=== PATIENT | female | born 1975 | race Caucasian/White ===

== ENCOUNTER 2016-07-20 12:43 | Emergency (ER) | payer OTHER ==
[~2016-07-20] VITALS: Ht 170.2 cm; Wt 61.2 kg
[~2016-07-20 12:43] MED LIST: CLOZ100T PO; COGENTIN PO; DIVA125T2 PO
--- NOTE | 2016-07-20 12:59 | NUR ---
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
--- NOTE | 2016-07-20 13:01 | NUR ---
Patient discharged to home in stable conditon. Written and verbal after care instructions given to patient. Patient verbalizes understanding of instructions. Patient left ER with brisk steady gait.
== END 2016-07-20 13:02 | disposition home or self-care (01) ==
LOC: ER 12:43
DX: M54.5 Low back pain (principal); J45.909 Unspecified asthma, uncomplicated; F20.9 Schizophrenia, unspecified; F10.20 Alcohol dependence, uncomplicated; F17.200 Nicotine dependence, unspecified, uncomplicated
CPT/HCPCS: A4663

== ENCOUNTER 2016-07-24 10:22 | Emergency (ER) | payer OTHER ==
[~2016-07-24] VITALS: Ht 170.2 cm; Wt 61.2 kg
--- NOTE | 2016-07-24 11:27 | NUR ---
Urine specimen obtained and sent to lab.
[2016-07-24 11:38] LABS: *BILIRUBIN,URIN NEGATIVE (NEGATIVE); *BLOOD, URINE NEGATIVE (NEGATIVE); *CLARITY,URINE CLOUDY (CLEAR); *COLOR,URINE YELLOW (YELLOW); *KETONES,URINE NEGATIVE (NEGATIVE); *PROTEIN,URINE NEGATIVE (NEGATIVE); *UROBILINOGEN,URINE 0.2 E.U./dl (NORMAL); LEUKOCYTE ESTERASE ,URINE 2+ (NEGATIVE); NITRITE, URINE NEGATIVE (NEGATIVE); UGLUCOSE NEGATIVE (NEGATIVE)
[2016-07-24 11:45] LABS: *URINE HCG, QUAL NEGATIVE (NEGATIVE)
[2016-07-24 12:08] LABS: BACTERIA,URINE MODERATE /HPF (NONE SEEN); MUCUS,URINE FEW /LPF (0-FEW); SQUAMOUS EPITHELIAL CELL,UR MANY /HPF (NONE SEEN); TRICHOMONAS,URINE MODERATE /HPF (NONE SEEN)
--- NOTE | 2016-07-24 12:17 | NUR ---
Patient discharged to home in stable conditon. Written and verbal after care instructions given. Patient verbalizes understanding of instructions.
== END 2016-07-24 12:19 | disposition home or self-care (01) ==
LOC: ER 10:22
DX: N12 Tubulo-interstitial nephritis, not specified as acute or chronic (principal); J45.909 Unspecified asthma, uncomplicated; F20.9 Schizophrenia, unspecified; F10.20 Alcohol dependence, uncomplicated; F17.200 Nicotine dependence, unspecified, uncomplicated
CPT/HCPCS: 84703; A4663

== ENCOUNTER 2016-07-28 15:24 | Emergency (ER) | payer OTHER ==
[~2016-07-28] VITALS: Ht 170.2 cm; Wt 61.2 kg
[2016-07-28] MEDS ORDERED: CEPH-570 PO (15:31)
[2016-07-28] MEDS ORDERED: IBUP-1481 PO (15:31)
[2016-07-28 16:00] LABS: *URINE HCG, QUAL NEGATIVE (NEGATIVE)
[2016-07-28 16:04] LABS: *BILIRUBIN,URIN NEGATIVE (NEGATIVE); *BLOOD, URINE 1+ (NEGATIVE); *CLARITY,URINE SLIGHTLY CLOUDY (CLEAR); *COLOR,URINE YELLOW (YELLOW); *KETONES,URINE TRACE (NEGATIVE); *PROTEIN,URINE NEGATIVE (NEGATIVE); *UROBILINOGEN,URINE 0.2 E.U./dl (NORMAL); LEUKOCYTE ESTERASE ,URINE 3+ (NEGATIVE); NITRITE, URINE NEGATIVE (NEGATIVE); UGLUCOSE NEGATIVE (NEGATIVE)
[2016-07-28 16:19] LABS: BACTERIA,URINE FEW /HPF (NONE SEEN); SQUAMOUS EPITHELIAL CELL,UR MANY /HPF (NONE SEEN); WBC,URINE 20-50 /HPF (0-3)
[2016-07-28 16:20] LABS: MUCUS,URINE MODERATE /LPF (0-FEW); TRICHOMONAS,URINE PRESENT /HPF (NONE SEEN)
--- NOTE | 2016-07-28 16:36 | NUR ---
Patient discharged to home in stable conditon. Written and verbal after care instructions given. Patient verbalizes understanding of instructions.
== END 2016-07-28 16:39 | disposition home or self-care (01) ==
LOC: ER 15:27
DX: N39.0 Urinary tract infection, site not specified (principal); M54.9 Dorsalgia, unspecified; F10.20 Alcohol dependence, uncomplicated; F17.200 Nicotine dependence, unspecified, uncomplicated; F20.9 Schizophrenia, unspecified
CPT/HCPCS: 72072; 72100; 84703; A4663

== ENCOUNTER 2016-08-10 15:46 | Emergency (ER) | payer OTHER ==
[~2016-08-10] VITALS: Ht 165.1 cm; Wt 70.3 kg
[~2016-08-10 15:46] MED LIST changes: +CEPH-570 PO; +IBUP-1481 PO
--- NOTE | 2016-08-10 16:45 | NUR ---
Pt ambulatory to bed 5, pt waitng to be seen.
[2016-08-10] MEDS ORDERED: predniSONE 20 MG TABLET PO ONE (17:45)
--- NOTE | 2016-08-10 17:49 | NUR ---
Dr messina at bedside for shashank, pt medicated w/ 60 mg prednisone po.
--- NOTE | 2016-08-10 17:53 | NUR ---
Pt dc;ed home w/ aci, pt given script for prednisone po and albuterol inhaler.
[2016-08-10 17:54] VITALS: BP 126/74
[2016-08-10] MEDS ORDERED: predniSONE 20 MG TABLET ONE (17:56)
== END 2016-08-10 17:56 | disposition home or self-care (01) ==
LOC: ER 15:46
DX: J45.909 Unspecified asthma, uncomplicated (principal); F41.9 Anxiety disorder, unspecified; F10.20 Alcohol dependence, uncomplicated; F17.200 Nicotine dependence, unspecified, uncomplicated; F20.9 Schizophrenia, unspecified
CPT/HCPCS: A4663; J7512

== ENCOUNTER 2017-01-06 13:39 | Emergency (ER) | payer OTHER ==
[~2017-01-06] VITALS: Ht 170.2 cm; Wt 65.8 kg
[~2017-01-06 13:39] MED LIST changes: -IBUP-1481 PO; +IBUP-1953 PO
[2017-01-06] MEDS ORDERED: [UNRECOGNIZED DRUG - REMARK] (14:06)
--- NOTE | 2017-01-06 15:20 | NUR ---
Patient discharged to home in stable conditon. Written and verbal after care instructions given. Patient verbalizes understanding of instructions.pt with family member. wheelchaired pt to the car per pt request.
[2017-01-06 15:24] VITALS: BP 118/75
== END 2017-01-06 15:26 | disposition home or self-care (01) ==
LOC: ER 14:04
DX: S43.402A Unspecified sprain of left shoulder joint, initial encounter (principal); Z79.01 Long term (current) use of anticoagulants; F17.200 Nicotine dependence, unspecified, uncomplicated; Z86.73 Personal history of transient ischemic attack (TIA), and cerebral infarction without residual deficits; X58.XXXA Exposure to other specified factors, initial encounter; Y93.89 Activity, other specified; Y92.9 Unspecified place or not applicable; Y99.9 Unspecified external cause status
CPT/HCPCS: 73030; 99284; A4663

== ENCOUNTER 2018-09-02 12:11 | Emergency (ER) | payer OTHER ==
[~2018-09-02] VITALS: Ht 170.2 cm; Wt 65.8 kg
[~2018-09-02 12:11] MED LIST changes: -CEPH-570 PO; -IBUP-1953 PO; +[UNRECOGNIZED DRUG - REMARK]
--- NOTE | 2018-09-02 12:30 | NUR ---
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 Patient requesting for "a cure."
--- NOTE | 2018-09-02 13:15 | NUR ---
Patient discharged to home in stable conditon. Written and verbal after care instructions given. Patient verbalizes understanding of instructions. With no distress noted
[2018-09-02 13:20] VITALS: BP 100/77
== END 2018-09-02 13:20 | disposition home or self-care (01) ==
LOC: ER 12:11
DX: G81.90 Hemiplegia, unspecified affecting unspecified side (principal); F17.200 Nicotine dependence, unspecified, uncomplicated; Z86.73 Personal history of transient ischemic attack (TIA), and cerebral infarction without residual deficits; Z79.899 Other long term (current) drug therapy
CPT/HCPCS: A4663